=== PATIENT | male | born 1940 | race Two or more races ===

== ENCOUNTER 2024-08-22 16:15 | Emergency (ER) | payer OTHER ==
[~2024-08-22] VITALS: Ht 167.6 cm; Wt 74.8 kg
[2024-08-22 16:32] VITALS: BP 122/66; TEMP 98.3; O2SAT 97
== END 2024-08-22 17:40 | disposition home or self-care (01) ==
LOC: ER 16:38
DX: T83.091A Other mechanical complication of indwelling urethral catheter, initial encounter (principal); N18.9 Chronic kidney disease, unspecified; Z85.46 Personal history of malignant neoplasm of prostate; Z85.51 Personal history of malignant neoplasm of bladder; Z90.79 Acquired absence of other genital organ(s); X58.XXXA Exposure to other specified factors, initial encounter; Y93.9 Activity, unspecified; Y92.89 Other specified places as the place of occurrence of the external cause; Y99.8 Other external cause status